=== PATIENT | male | born 1955 ===

== ENCOUNTER 2023-09-25 08:04 | Inpatient (IN) ==
[2023-09-25] MEDS ORDERED: Magnesium Hydroxide LIQ 30 ML UDC PO PRN (12:24)
[2023-09-25] MEDS ORDERED: Ondansetron ODT 4 mg TAB 4 MG TAB PO PRN (13:29)
[2023-09-25] MEDS: Enoxaparin 40 MG/0.4 ML SYR SUBCUT SCH (20:56)
[2023-09-25] MEDS: CMC: Simvastatin 10 mg TAB (NF) PO SCH (20:57)
[2023-09-25] MEDS: oxyCODONE SR 20 mg TAB PO SCH (20:58)
[2023-09-26 06:43] LABS: ABS Basophils 0.1 10^3/uL (0.0-0.1); ABS Eosinophils 0.2 10^3/uL (0.0-0.5); ABS Lymphocytes 1.8 10^3/uL (1.0-4.8); ABS Monocytes 0.8 10^3/uL (0.0-1.1); ABS Neutrophils 5.5 10^3/uL (1.5-7.6); Eosinophil % 2.2 %; Hematocrit 25.8 % (38-53); Hemoglobin 9.2 g/dL (13.2-16.3); Lymphocyte % 21.5 %; Mean Corpuscular Hemoglobin 29.3 pg (27-33); Mean Corpuscular Hgb Conc 35.7 g/dL (31-36); Mean Corpuscular Volume 82.1 fL (80-97); Mean Platelet Volume 8.1 fL (7.5-11.2); Nucleated Red Blood Cells % 0.1 %/100WBC (0.0-0.8); Platelet Count 386 10^3/uL (150-450); Red Blood Count 3.14 10^6/uL (4.06-5.63); Red Cell Distribution Width 13.8 % (12-17); White Blood Count 8.3 10^3/uL (3.6-10.2)
[2023-09-26 07:16] LABS: Albumin 3.3 g/dL (3.2-5.2); Albumin/Globulin Ratio 1.4 (1-3); Calcium 8.8 mg/dL (8.6-10.3); Creatinine, Serum 0.72 mg/dL (0.67-1.17); Globulin 2.3 g/dL (2-4); Potassium 4.1 mmol/L (3.5-5.0); Total Bilirubin 0.5 mg/dL (0.2-1.0); Total Protein 5.6 g/dL (6.4-8.9); eGFR CKD-EPI 99.5 (>60)
[2023-09-26] MEDS ORDERED: Losartan/HCTZ 100/25 TAB (NF) PO SCH (09:00)
[2023-09-26] MEDS: oxyCODONE SR 20 mg TAB PO SCH (20:15)
[2023-09-30] MEDS: Senna TAB 8.6 mg TAB PO PRN (20:14)
[2023-10-01] MEDS: Lidocaine PATCH 5% PATCH TRANSDERM SCH (07:32)
[2023-10-03 08:28] LABS: ABS Basophils 0.1 10^3/uL (0.0-0.1); ABS Eosinophils 0.1 10^3/uL (0.0-0.5); ABS Lymphocytes 1.3 10^3/uL (1.0-4.8); ABS Monocytes 0.4 10^3/uL (0.0-1.1); ABS Neutrophils 3.3 10^3/uL (1.5-7.6); Eosinophil % 2.5 %; Hematocrit 29.1 % (38-53); Hemoglobin 10.1 g/dL (13.2-16.3); Lymphocyte % 24.6 %; Mean Corpuscular Hemoglobin 28.8 pg (27-33); Mean Corpuscular Hgb Conc 34.9 g/dL (31-36); Mean Corpuscular Volume 82.4 fL (80-97); Mean Platelet Volume 8.3 fL (7.5-11.2); Nucleated Red Blood Cells % 0.1 %/100WBC (0.0-0.8); Platelet Count 384 10^3/uL (150-450); Red Blood Count 3.53 10^6/uL (4.06-5.63); Red Cell Distribution Width 14.3 % (12-17); White Blood Count 5.1 10^3/uL (3.6-10.2)
[2023-10-03 09:06] LABS: Albumin 3.8 g/dL (3.2-5.2); Albumin/Globulin Ratio 1.4 (1-3); Calcium 9.2 mg/dL (8.6-10.3); Creatinine, Serum 0.76 mg/dL (0.67-1.17); Globulin 2.7 g/dL (2-4); Total Bilirubin 0.4 mg/dL (0.2-1.0); Total Protein 6.5 g/dL (6.4-8.9); eGFR CKD-EPI 97.9 (>60)
[2023-10-10 05:48] LABS: ABS Eosinophils 0.1 10^3/uL (0.0-0.5); ABS Lymphocytes 1.7 10^3/uL (1.0-4.8); ABS Monocytes 0.5 10^3/uL (0.0-1.1); ABS Neutrophils 2.9 10^3/uL (1.5-7.6); Eosinophil % 2.7 %; Hematocrit 31.4 % (38-53); Hemoglobin 10.7 g/dL (13.2-16.3); Lymphocyte % 32.6 %; Mean Corpuscular Hemoglobin 28.1 pg (27-33); Mean Corpuscular Hgb Conc 34.2 g/dL (31-36); Mean Corpuscular Volume 82.2 fL (80-97); Mean Platelet Volume 8.4 fL (7.5-11.2); Platelet Count 264 10^3/uL (150-450); Red Blood Count 3.82 10^6/uL (4.06-5.63); Red Cell Distribution Width 14.4 % (12-17); White Blood Count 5.3 10^3/uL (3.6-10.2)
[2023-10-10 06:49] LABS: Albumin 3.9 g/dL (3.2-5.2); Albumin/Globulin Ratio 1.5 (1-3); Calcium 9.3 mg/dL (8.6-10.3); Creatinine, Serum 0.85 mg/dL (0.67-1.17); Globulin 2.6 g/dL (2-4); Potassium 3.9 mmol/L (3.5-5.0); Total Bilirubin 0.3 mg/dL (0.2-1.0); Total Protein 6.5 g/dL (6.4-8.9); eGFR CKD-EPI 94.6 (>60)
[2023-10-17 07:08] LABS: ABS Eosinophils 0.2 10^3/uL (0.0-0.5); ABS Lymphocytes 1.6 10^3/uL (1.0-4.8); ABS Monocytes 0.5 10^3/uL (0.0-1.1); ABS Neutrophils 2.8 10^3/uL (1.5-7.6); ABS Nucleated RBC 0.01 10^3/ul; Eosinophil % 3.1 %; Hematocrit 32.4 % (38-53); Hemoglobin 11.1 g/dL (13.2-16.3); Lymphocyte % 31.9 %; Mean Corpuscular Hgb Conc 34.2 g/dL (31-36); Mean Platelet Volume 8.9 fL (7.5-11.2); Nucleated Red Blood Cells % 0.1 %/100WBC (0.0-0.8); Platelet Count 237 10^3/uL (150-450); Red Blood Count 3.95 10^6/uL (4.06-5.63); Red Cell Distribution Width 14.8 % (12-17); White Blood Count 5.2 10^3/uL (3.6-10.2)
[2023-10-17 07:18] LABS: Albumin/Globulin Ratio 1.5 (1-3); Calcium 9.2 mg/dL (8.6-10.3); Creatinine, Serum 0.87 mg/dL (0.67-1.17); Globulin 2.7 g/dL (2-4); Potassium 3.9 mmol/L (3.5-5.0); Total Bilirubin 0.3 mg/dL (0.2-1.0); Total Protein 6.7 g/dL (6.4-8.9); eGFR CKD-EPI 93.4 (>60)
[2023-10-24 06:40] LABS: ABS Basophils 0.1 10^3/uL (0.0-0.1); ABS Eosinophils 0.1 10^3/uL (0.0-0.5); ABS Lymphocytes 1.6 10^3/uL (1.0-4.8); ABS Monocytes 0.5 10^3/uL (0.0-1.1); ABS Neutrophils 3.1 10^3/uL (1.5-7.6); Eosinophil % 2.6 %; Hematocrit 33.4 % (38-53); Hemoglobin 11.4 g/dL (13.2-16.3); Lymphocyte % 30.1 %; Mean Corpuscular Hemoglobin 27.6 pg (27-33); Mean Corpuscular Hgb Conc 34.2 g/dL (31-36); Mean Corpuscular Volume 80.6 fL (80-97); Mean Platelet Volume 8.6 fL (7.5-11.2); Platelet Count 264 10^3/uL (150-450); Red Blood Count 4.14 10^6/uL (4.06-5.63); Red Cell Distribution Width 14.1 % (12-17); White Blood Count 5.4 10^3/uL (3.6-10.2)
[2023-10-24 07:56] LABS: Albumin 4.1 g/dL (3.2-5.2); Albumin/Globulin Ratio 1.5 (1-3); Calcium 9.6 mg/dL (8.6-10.3); Creatinine, Serum 0.79 mg/dL (0.67-1.17); Globulin 2.7 g/dL (2-4); Potassium 3.9 mmol/L (3.5-5.0); Total Bilirubin 0.3 mg/dL (0.2-1.0); Total Protein 6.8 g/dL (6.4-8.9); eGFR CKD-EPI 96.2 (>60)
[2023-10-31 06:48] LABS: ABS Basophils 0.1 10^3/uL (0.0-0.1); ABS Eosinophils 0.2 10^3/uL (0.0-0.5); ABS Lymphocytes 1.5 10^3/uL (1.0-4.8); ABS Monocytes 0.6 10^3/uL (0.0-1.1); ABS Neutrophils 2.9 10^3/uL (1.5-7.6); Hemoglobin 11.7 g/dL (13.2-16.3); Lymphocyte % 29.5 %; Mean Corpuscular Hemoglobin 26.8 pg (27-33); Mean Corpuscular Hgb Conc 33.4 g/dL (31-36); Mean Corpuscular Volume 80.3 fL (80-97); Mean Platelet Volume 8.5 fL (7.5-11.2); Platelet Count 281 10^3/uL (150-450); Red Blood Count 4.35 10^6/uL (4.06-5.63); White Blood Count 5.2 10^3/uL (3.6-10.2)
[2023-10-31 07:27] LABS: Albumin 4.1 g/dL (3.2-5.2); Albumin/Globulin Ratio 1.6 (1-3); Calcium 9.2 mg/dL (8.6-10.3); Creatinine, Serum 0.82 mg/dL (0.67-1.17); Globulin 2.5 g/dL (2-4); Potassium 3.9 mmol/L (3.5-5.0); Total Bilirubin 0.2 mg/dL (0.2-1.0); Total Protein 6.6 g/dL (6.4-8.9); eGFR CKD-EPI 95.1 (>60)
[2023-11-04] MEDS: HYDROcodone/ACETAMIN 5/325 mg TAB PO PRN (20:33)
[2023-11-05 05:02] VITALS: BP 151/86
[2023-11-05] MEDS: Enoxaparin 40 MG/0.4 ML SYR SUBCUT SCH (08:58)
== END 2023-11-05 13:20 | disposition home or self-care (01) | DRG 561 ==
LOC: PMRU 10:30
PROVIDERS: ADMIT Physical Medicine & Rehabilitation; ATTEND Physical Medicine & Rehabilitation